=== PATIENT | male | born 1950 | race Caucasian/White ===

== ENCOUNTER 2017-08-23 15:17 | Inpatient (IN) ==
[2017-08-23] MEDS ORDERED: Albuterol 2.5 MG/3 ML NEBULIZER IH PRN (17:17)
[2017-08-24 05:41] LABS: Basophils % 0.1 %; Eosinophils # 0.1 K/mcL (0.0-0.6); Eosinophils % 0.8 %; Hematocrit 53.6 % (37.5-50.1); Hemoglobin 17.2 g/dL (12.9-16.9); Immature Granulocytes % 0.5 % (0-4); Lymphocytes # 1.4 K/mcL (0.6-4.6); Lymphocytes % 9.8 %; Mean Corpuscular HGB Conc 32.1 g/dL (31.6-35.5); Mean Corpuscular Hemoglobin 30.6 pg (28.0-33.3); Mean Corpuscular Volume 95.4 fL (83.0-100.0); Mean Platelet Volume 10.7 fL (9.4-12.4); Monocytes # 1.8 K/mcL (0.0-1.3); Monocytes % 12.2 %; Neutrophils # 11.3 K/mcL (1.6-8.9); Platelet Count 124 K/mcL (140-400); Red Blood Count 5.62 M/mcL (4.19-5.50); Red Cell Distribution Width 13.2 % (11.5-14.5); Segmented Neutrophils % 76.6 %
[2017-08-24 06:03] LABS: BUN/Creatinine Ratio 34 (6-26); Blood Urea Nitrogen 28 mg/dL (8-23); Calcium 9.1 mg/dL (8.6-10.3); Carbon Dioxide 42 mEq/L (23-29); Chloride 91 mEq/L (98-107); Glucose 85 mg/dL (70-105); Osmolality,Calculated 289 (280-300); Potassium 4.8 mEq/L (3.5-5.1); Sodium 137 mEq/L (136-145); eGFR For African Americans > 60 (> 60); eGFR For Non-African Americans > 60 (> 60)
[2017-08-24 08:53] LABS: ABG Base Excess 17 mEq/L (-2 to 3); ABG HCO3 47 mEq/L (21-27); ABG Oxygen Saturation 98 % (95-98); ABG PCO2 71 mmHg (35-45); ABG PH 7.43 pH Units (7.32-7.45); ABG PO2 109 mmHg (85-104); ABG TCO2 49 mEq/L (20-26)
--- NOTE | 2017-08-24 09:31 | Internal Med History&Physical ---
Date of Encounter: 08/24/17 Time of Encounter: 09:29 Assessment and Plan (1) COPD exacerbation Current visit: Yes Status: Acute Continue prednisone and oxygen and inhaled nebulizers. Monitor. (2) New onset atrial fibrillation Current visit: Yes Status: Acute Rate and rhythm controlled with current medication. Monitor (3) Pneumonia Current visit: Yes Status: Acute Improving. Continue Augmentin. Monitor Qualifiers: Pneumonia type: due to unspecified organism Laterality: unspecified laterality Lung location: unspecified part of lung Qualified Code(s): J18.9 - Pneumonia, unspecified organism (4) Acute systolic heart failure Current visit: Yes Status: Acute Pedal edema present. Monitor for decompensation. Continue current medication. Internal Medicine - H&P: HPI Admitted From: Intrahospital Transfer Plans for Post Hospital Care: Home History of present illness: Mr. Louis is a 67 year old male admitted to rehab unit from [facility] after being admitted for COPD exacerbation, pneumonia, new onset a fib and CHF. Patient has been a 40+ years, 2 packs a day. States he quit 2 weeks ago. Recently had a thoracentesis for right pleural effusion. Complains of shortness of breath. Denies chest pain, fever, chills, nausea, vomiting or diarrhea. Past medical history includes COPD recent CT scan also showed lesion on the long. Oncology implement ontology suggested repeating CT scan and 4 to 6 weeks. Past Med Surg Social Fam HX - Past Medical History Medical history: atrial fibrillation, CHF, COPD Additional medical history: emphysema smoker Psychiatric history: no psych history, anxiety - Past Surgical History Additional surgical history: Broken femur, nail placed in femur in 1998 - Social History Smoking Status: Former smoker - Family History Mother Living Status: Hx Family Cancer: Yes Father Living Status: Hx Family Cancer: Yes Internal Medicine - H&P: Meds Albuterol Sulfate [Proair Respiclick] 90 mcg IH QID PRN 08/14/17 [History] Fluticasone/Vilanterol [Breo Ellipta 200-25 Mcg INH] 1 puff IH DAILY 08/14/17 [ History] Albuterol Neb [Proventil Neb] 2.5 mg IH Q8H PRN 08/15/17 [History] Multivits,Ca,Min/Iron/FA/Lycop [Men Under 50 Multivitamin Tab] 1 tab PO DAILY [History] Amoxicillin/Clavulanate [Augmentin] 875 mg PO BIDWM 7 Days #14 tablet 08/21/17 [ Rx] Carvedilol [Coreg] 12.5 mg PO BIDWM #30 tablet 08/21/17 [Rx] Digoxin [Lanoxin] 0.125 mg PO DAILY #30 tablet 08/21/17 [Rx] predniSONE [PredniSONE] 20 mg PO DAILY 5 Days #5 tablet 08/21/17 [Rx] 3 Allergy/AdvReac Type Severity Reaction Status Date / Time No Known Allergies Allergy Verified 08/15/17 10:18 All Systems PM: A 10-system review of systems was performed and is negative for pertinent findings except as documented above in the HPI. - Constitutional Constitutional: no chills, no fever(s), no night sweats - EENT Eyes: no change in vision, no discharge, no pain, no photophobia Ears: no ear discharge, no ear pain, no tinnitus Nose, mouth and throat: no dysphagia, no nasal discharge, no neck pain, no sore throat - Cardiovascular Cardiovascular ROS IM: no chest pain, no diaphoresis, no dyspnea, no lightheadedness, no palpitations, no syncope - Respiratory Respiratory: as per HPI, no cough, no dyspnea, no wheezing, no excessive phlegm production - Gastrointestinal Gastrointestinal: no abdominal pain, no diarrhea, no hematemesis, no hematochezia, no melena, no nausea, no vomiting - Musculoskeletal Musculoskeletal ROS IM: no numbness, no tingling - Integumentary Integumentary IM: no rash, no unusual bruising - Neurological Neurological ROS: no confusion, no convulsions, no focal weakness, no numbness, no tingling, no tremor(s) - Hematologic/Lymphatic Hematologic/Lymphatic: no easy bruising - Constitutional Vitals: Temp Pulse Resp BP Pulse Ox 97.6 F 102 18 141/83 91 08/24/17 07:15 08/24/17 07:15 08/24/17 07:15 08/24/17 07:15 08/24/17 07:15 General appearance: Present: cooperative, A&O X 3, pleasant, no acute distress, answers questions appropriately - Head Head exam: Present: atraumatic, normocephalic - Eye Eye exam: Present: PERRL, conjuntiva pink, sclera anicteric Pupils: Present: PERRL - Neck Neck exam general surgery: Present: supple, trachea midline. Absent: lymphadenopathy - Respiratory Respiratory exam: Present: decreased breath sounds, CTAB. Absent: accessory muscle use, rales, rhonchi, wheezes - Cardiovascular Cardiovascular exam: Present: RRR, +S1, +S2. Absent: diastolic murmur, gallop, rubs, systolic murmur - GI/Abdominal GI/Abdominal exam: Present: normal bowel sounds, soft, no peritoneal signs. Absent: distended, tenderness - Extremities Exam Extremities exam: Present: pedal edema, warm, radial pulses palpable and symmetrical. Absent: calf tenderness, cyanotic - Neurological Exam Neurological exam: Present: CN II-XII intact, oriented X3, no focal deficits. Absent: pronater drift, facial droop, speech deficit - Skin Skin exam: Present: dry, intact Internal Med - H&P Results - Labs CBC & Chem 7: 08/24/17 05:15 08/24/17 05:15 Labs: Short CBC 08/24/17 Range/Units 05:15 WBC 14.7 H (4.3-11.1) K/mcL Hgb 17.2 H (12.9-16.9) g/dL Hct 53.6 H (37.5-50.1) % Plt Count 124 L (140-400) K/mcL Neutrophils # 11.3 H (1.6-8.9) K/mcL BMP 08/24/17 05:15 Sodium 137 Potassium 4.8 Chloride 91 L Carbon Dioxide 42 H* BUN 28 H Creatinine 0.83 Glucose 85 Calcium 9.1 - ABG Interpretation ABG results: 08/24/17 08:46 ABG pH 7.43 ABG pCO2 71 H* ABG pO2 109 H ABG HCO3 47 H ABG Total CO2 49 H ABG O2 Saturation 98 ABG Base Excess 17 H - VTE Documentation of Mechanical Device: Graduated compression elastic hosiery
[2017-08-24] MEDS: predniSONE 20 MG TABLET PO SCH (09:39)
[2017-08-24] MEDS: Multivit/Ca/Min/Fe/FA 1 TAB TABLET PO SCH (09:40)
[2017-08-24] MEDS: *HR* Digoxin 0.125 MG TABLET PO SCH (09:40)
[2017-08-24] MEDS: (Breo Ellipta 200-25 Mcg Inh) IH SCH (09:43)
[2017-08-25 05:31] LABS: Basophils % 0.1 %; Eosinophils # 0.1 K/mcL (0.0-0.6); Eosinophils % 0.7 %; Hematocrit 50.2 % (37.5-50.1); Hemoglobin 16.4 g/dL (12.9-16.9); Immature Granulocytes % 0.4 % (0-4); Lymphocytes # 1.6 K/mcL (0.6-4.6); Lymphocytes % 10.9 %; Mean Corpuscular HGB Conc 32.7 g/dL (31.6-35.5); Mean Corpuscular Volume 94.9 fL (83.0-100.0); Mean Platelet Volume 9.9 fL (9.4-12.4); Monocytes # 1.7 K/mcL (0.0-1.3); Monocytes % 11.3 %; Neutrophils # 11.3 K/mcL (1.6-8.9); Platelet Count 124 K/mcL (140-400); Red Blood Count 5.29 M/mcL (4.19-5.50); Red Cell Distribution Width 13.1 % (11.5-14.5); Segmented Neutrophils % 76.6 %
[2017-08-25 05:57] LABS: BUN/Creatinine Ratio 36 (6-26); Blood Urea Nitrogen 28 mg/dL (8-23); Calcium 8.8 mg/dL (8.6-10.3); Carbon Dioxide 44 mEq/L (23-29); Chloride 89 mEq/L (98-107); Glucose 93 mg/dL (70-105); Osmolality,Calculated 283 (280-300); Potassium 4.9 mEq/L (3.5-5.1); Sodium 134 mEq/L (136-145); eGFR For African Americans > 60 (> 60); eGFR For Non-African Americans > 60 (> 60)
[2017-08-25] MEDS: (Breo Ellipta 200-25 Mcg Inh) IH SCH (08:11)
[2017-08-25] MEDS: predniSONE 20 MG TABLET PO SCH (08:37)
[2017-08-25] MEDS: Multivit/Ca/Min/Fe/FA 1 TAB TABLET PO SCH (08:37)
[2017-08-25] MEDS: *HR* Digoxin 0.125 MG TABLET PO SCH (08:37)
[2017-08-25] MEDS ORDERED: Nitroglycerin 0.4 MG TAB.SUBL SL PRN (15:14)
--- NOTE | 2017-08-25 15:31 | Internal Med Progress Note ---
Date of Encounter: 08/25/17 Time of Encounter: 15:29 - Assessment and plan (1) COPD exacerbation Current Visit: Yes Status: Chronic Assessment and plan: Patient currently appears relaxed but states that he does become short of breath with minimal exertion. Lungs are clear throughout but noted diminished breath sounds to bases L>R. Patient with recent history of right pleural effusion requiring thoracentesis 2 when hospitalized at [place]. Chest x-ray was obtained which shows continued right pleural effusion which may have increased in size. We will obtain a PA and lateral chest x-ray in the morning for further evaluation of pleural effusion. We will titrate oxygen to maintain saturations greater than 90 and less than 95%. Patient denies any productive cough. Afebrile. No current signs of infection. We will obtain a sputum culture when available. We will have respiratory therapy perform PFT further evaluation. Spoke to patient in length about the benefits of using BiPAP, but patient states that he has tried BiPAP in the past and was not able to tolerate and currently refuses. (2) Afib Current Visit: Yes Status: Chronic Assessment and plan: No acute issues. Heart rate remains irregular with controlled rate less than 100 Qualifiers: Atrial fibrillation type: chronic Qualified Code(s): I48.2 - Chronic atrial fibrillation (3) Heart failure Current Visit: No Status: Chronic Assessment and plan: Currently no acute issues. Patient with history of EF of 25-30% due to cardiomyopathy. Vital signs stable. Chest x-ray showed no pulmonary edema. Qualifiers: Heart failure type: unspecified Heart failure chronicity: unspecified Qualified Code(s): I50.9 - Heart failure, unspecified (4) Cardiomyopathy Current Visit: No Status: Chronic Assessment and plan: No acute issues. EF 25-30%. Chest x-ray shows no pulmonary edema, but does continue to show right pleural effusion. Vital signs are stable. We will continue with current medications Qualifiers: Cardiomyopathy type: unspecified Qualified Code(s): I42.9 - Cardiomyopathy , unspecified - Time Spent With Patient less than 15 minutes - Subjective Interval history: Patient currently appears relaxed and denies any discomforts. Patient states that his breathing seems somewhat improved but continues to have dyspnea with minimal exertion. Patient denies any productive cough. - Constitutional Vitals: Temp Pulse Resp BP Pulse Ox 98.3 F 93 16 135/81 99 08/25/17 07:00 08/25/17 13:45 08/25/17 07:00 08/25/17 07:00 08/25/17 13:45 General appearance: Present: cooperative, A&O X 3, pleasant, no acute distress, answers questions appropriately - Head Head exam: Present: atraumatic, normocephalic - Eye Eye exam: Present: PERRL, conjuntiva pink, sclera anicteric Pupils: Present: PERRL - Neck Neck exam general surgery: Present: supple, trachea midline. Absent: lymphadenopathy - Respiratory Respiratory exam: Present: CTAB. Absent: accessory muscle use, rales, rhonchi, wheezes Additional comments: Lungs are clear throughout upper emerson but noted very diminished to bases. Respiratory effort appears relaxed. No productive cough noted - Cardiovascular Cardiovascular exam: Present: RRR, +S1, +S2. Absent: diastolic murmur, gallop, rubs, systolic murmur - GI/Abdominal GI/Abdominal exam: Present: normal bowel sounds, soft, no peritoneal signs. Absent: distended, tenderness - Extremities Exam Extremities exam: Present: warm, radial pulses palpable and symmetrical. Absent : calf tenderness, cyanotic, pedal edema - Neurological Exam Neurological exam: Present: CN II-XII intact, oriented X3, no focal deficits. Absent: pronater drift, facial droop, speech deficit - Skin Skin exam: Present: dry, intact Internal Medicine: Result - Labs CBC & Chem 7: 08/25/17 05:20 08/25/17 05:20 Labs: Short CBC 08/25/17 Range/Units 05:20 WBC 14.8 H (4.3-11.1) K/mcL Hgb 16.4 (12.9-16.9) g/dL Hct 50.2 H (37.5-50.1) % Plt Count 124 L (140-400) K/mcL Neutrophils # 11.3 H (1.6-8.9) K/mcL BMP 08/25/17 05:20 Sodium 134 L Potassium 4.9 Chloride 89 L Carbon Dioxide 44 H* BUN 28 H Creatinine 0.78 Glucose 93 Calcium 8.8 - ABG Interpretation ABG results: ABG ABG pH 7.43 pH Units (7.32-7.45) 08/24/17 08:46 ABG pCO2 71 mmHg (35-45) H* 08/24/17 08:46 ABG pO2 109 mmHg (85-104) H 08/24/17 08:46 ABG O2 Saturation 98 % (95-98) 08/24/17 08:46 - Impressions Impressions Chest X-Ray 08/25/17 13:42 IMPRESSION: Stable examination with partially loculated moderate right pleural effusion with right upper lobe opacity, unchanged. D/ / Leandro Hardy MD / Leandro Hardy MD Interpreting Provider: Leandro Hardy MD - VTE Documentation of Mechanical Device: Graduated compression elastic hosiery Consult Discharge Plan - Plan Referrals: Justen Michaud MD [Partnered Physician] - 09/22/17 9:30 am (csardiology follow up at the [facility] [address]) Jefe Bansal MD [Primary Care Provider] -
[2017-08-25] MEDS: Levalbuterol Neb 1.25 MG/3 ML IH SCH ×2 (16:42→22:07)
[2017-08-26] MEDS: Levalbuterol Neb 1.25 MG/3 ML IH SCH ×4 (04:40→20:57)
[2017-08-26] MEDS: predniSONE 20 MG TABLET PO SCH (08:15)
[2017-08-26] MEDS: Multivit/Ca/Min/Fe/FA 1 TAB TABLET PO SCH (08:16)
[2017-08-26] MEDS: (Breo Ellipta 200-25 Mcg Inh) IH SCH (08:16)
[2017-08-26] MEDS: *HR* Digoxin 0.125 MG TABLET PO SCH (08:16)
--- NOTE | 2017-08-26 11:14 | Internal Med Progress Note ---
Date of Encounter: 08/26/17 Time of Encounter: 11:11 - Assessment and plan (1) COPD exacerbation Current Visit: Yes Status: Chronic Assessment and plan: Patient currently appears relaxed but states that he does become short of breath with minimal exertion. Lungs are clear throughout but noted diminished breath sounds to lower half of lung emerson. Patient with recent history of right pleural effusion requiring thoracentesis 2 when hospitalized at [place]. Chest x-ray was obtained which shows continued right pleural effusion which may have increased in size. Obtained a PA/LAT CXR which shows no change. We will continue to titrate oxygen to maintain saturations greater than 90 and less than 95%. Pt tolerated RA yesterday through most of the day. Patient denies any productive cough. Afebrile. No current signs of infection. We will obtain a sputum culture when available. We will have respiratory therapy perform PFT further evaluation today. Patient has refused use of BIPAP (2) Afib Current Visit: Yes Status: Chronic Assessment and plan: No acute issues. Heart rate remains irregular with controlled rate less than 100 Qualifiers: Atrial fibrillation type: chronic Qualified Code(s): I48.2 - Chronic atrial fibrillation (3) Heart failure Current Visit: No Status: Chronic Assessment and plan: Currently no acute issues. Patient with history of EF of 25-30% due to cardiomyopathy. Vital signs stable. Chest x-ray showed no pulmonary edema. Qualifiers: Heart failure type: unspecified Heart failure chronicity: unspecified Qualified Code(s): I50.9 - Heart failure, unspecified (4) Cardiomyopathy Current Visit: No Status: Chronic Assessment and plan: No acute issues. EF 25-30%. Chest x-ray shows no pulmonary edema, but does continue to show right pleural effusion. Vital signs are stable. We will continue with current medications Qualifiers: Cardiomyopathy type: unspecified Qualified Code(s): I42.9 - Cardiomyopathy , unspecified - Time Spent With Patient less than 15 minutes - Subjective Interval history: Patient currently appears relaxed and denies any discomforts. Patient states that his breathing seems somewhat improved but continues to have dyspnea with minimal exertion. Patient denies any productive cough. Patient reportedly has been weaned off O2 while awake with ox sat >92%. During the night while asleep, he desaturated and needed to have O2 restarted at 2L - Constitutional Vitals: Temp Pulse Resp BP Pulse Ox 97.3 F L 90 20 129/81 98 08/26/17 09:00 08/26/17 09:00 08/26/17 09:00 08/26/17 09:00 08/26/17 09:00 General appearance: Present: cooperative, A&O X 3, pleasant, no acute distress, answers questions appropriately - Head Head exam: Present: atraumatic, normocephalic - Eye Eye exam: Present: PERRL, conjuntiva pink, sclera anicteric Pupils: Present: PERRL - Neck Neck exam general surgery: Present: supple, trachea midline. Absent: lymphadenopathy - Respiratory Respiratory exam: Present: CTAB. Absent: accessory muscle use, rales, rhonchi, wheezes Additional comments: Lungs are CTA to upper emerson, but noted diminished breath sounds to lower half of lung emerson. No wheezing. Resp effort is relaxed. No productive cough. - Cardiovascular Cardiovascular exam: Present: RRR, +S1, +S2. Absent: diastolic murmur, gallop, rubs, systolic murmur - GI/Abdominal GI/Abdominal exam: Present: normal bowel sounds, soft, no peritoneal signs. Absent: distended, tenderness - Extremities Exam Extremities exam: Present: warm, radial pulses palpable and symmetrical. Absent : calf tenderness, cyanotic, pedal edema Additional comments: slight nonpitting edema to bilateral lower legs. - Neurological Exam Neurological exam: Present: CN II-XII intact, oriented X3, no focal deficits. Absent: pronater drift, facial droop, speech deficit - Skin Skin exam: Present: dry, intact Internal Medicine: Result - Labs CBC & Chem 7: 08/25/17 05:20 08/25/17 05:20 - ABG Interpretation ABG results: ABG ABG pH 7.43 pH Units (7.32-7.45) 08/24/17 08:46 ABG pCO2 71 mmHg (35-45) H* 08/24/17 08:46 ABG pO2 109 mmHg (85-104) H 08/24/17 08:46 ABG O2 Saturation 98 % (95-98) 08/24/17 08:46 - Impressions Impressions Chest X-Ray 08/25/17 13:42 IMPRESSION: Stable examination with partially loculated moderate right pleural effusion with right upper lobe opacity, unchanged. D/ / Leandro Hardy MD / Leandro Hardy MD Interpreting Provider: Leandro Hardy MD Chest X-Ray 08/26/17 07:00 IMPRESSION: 1. Unchanged moderate to large predominantly subpulmonic right pleural effusion with suspected partial loculation. 2. Unchanged right basilar passive atelectasis. 3. Unchanged airspace and reticular opacities in the lateral right upper lobe, potentially scarring or atelectasis. Underlying neoplasm is not excluded. D/ / Jimy Tomas MD / Jimy Tomas MD Interpreting Provider: Jimy Tomas MD - Diagnostic Studies Chest x-ray Status: image reviewed by ny - VTE Documentation of Mechanical Device: Graduated compression elastic hosiery Consult Discharge Plan - Plan Referrals: Justen Michaud MD [Partnered Physician] - 09/22/17 9:30 am (csardiology follow up at the [facility] [address]) Jefe Bansal MD [Primary Care Provider] -
[2017-08-27] MEDS: Levalbuterol Neb 1.25 MG/3 ML IH SCH ×4 (04:51→21:32)
[2017-08-27] MEDS: *HR* Digoxin 0.125 MG TABLET PO SCH (08:27)
[2017-08-27] MEDS: Multivit/Ca/Min/Fe/FA 1 TAB TABLET PO SCH (08:27)
[2017-08-27] MEDS: predniSONE 20 MG TABLET PO SCH (08:27)
[2017-08-27] MEDS: (Breo Ellipta 200-25 Mcg Inh) IH SCH (09:30)
--- NOTE | 2017-08-27 11:01 | Internal Med Progress Note ---
Date of Encounter: 08/27/17 Time of Encounter: 10:56 - Assessment and plan (1) COPD exacerbation Current Visit: Yes Status: Chronic Assessment and plan: Patient currently appears relaxed but states that he does become short of breath with minimal exertion. Lungs are clear throughout but noted diminished breath sounds to lower half of lung emerson. Patient with recent history of right pleural effusion requiring thoracentesis 2 when hospitalized at [place]. Chest x-ray was obtained which shows stable right pleural effusion. Obtained a PA/LAT CXR which shows no change. We will continue to titrate oxygen to maintain saturations greater than 90 and less than 95%. Pt tolerating RA today, with saturation greater than 92%.. Patient denies any productive cough. Afebrile. No current signs of infection. (2) Afib Current Visit: Yes Status: Chronic Assessment and plan: No acute issues. Heart rate remains irregular with controlled rate less than 100 Qualifiers: Atrial fibrillation type: chronic Qualified Code(s): I48.2 - Chronic atrial fibrillation (3) Heart failure Current Visit: No Status: Chronic Assessment and plan: Currently no acute issues. Patient with history of EF of 25-30% due to cardiomyopathy. Vital signs stable. Chest x-ray showed no pulmonary edema. Qualifiers: Heart failure type: unspecified Heart failure chronicity: unspecified Qualified Code(s): I50.9 - Heart failure, unspecified (4) Cardiomyopathy Current Visit: No Status: Chronic Assessment and plan: No acute issues. EF 25-30%. Chest x-ray shows no pulmonary edema, but does continue to show right pleural effusion. Vital signs are stable. We will continue with current medications Qualifiers: Cardiomyopathy type: unspecified Qualified Code(s): I42.9 - Cardiomyopathy , unspecified - Time Spent With Patient less than 15 minutes - Subjective Interval history: Patient currently appears relaxed and denies any discomforts. Patient states that his breathing seems somewhat improved but continues to have dyspnea with minimal exertion. Patient denies any productive cough. Patient reportedly has been weaned off O2 while awake with ox sat >92%. During the night while asleep, he desaturated and needed to have O2 restarted at 2L. Currently patient is maintaining oxygen saturation greater than 92% while on room air. - Constitutional Vitals: Temp Pulse Resp BP Pulse Ox 97 F L 85 15 112/65 98 08/27/17 07:48 08/27/17 07:48 08/27/17 07:48 08/27/17 07:48 08/27/17 07:48 General appearance: Present: cooperative, A&O X 3, pleasant, no acute distress, answers questions appropriately - Head Head exam: Present: atraumatic, normocephalic - Eye Eye exam: Present: PERRL, conjuntiva pink, sclera anicteric Pupils: Present: PERRL - Neck Neck exam general surgery: Present: supple, trachea midline. Absent: lymphadenopathy - Respiratory Respiratory exam: Present: CTAB. Absent: accessory muscle use, rales, rhonchi, wheezes Additional comments: Lungs are clear throughout upper emerson but noted diminished breath sounds to lower half of posterior emerson. No wheezes heard. Respiratory effort appears relaxed while at rest but patient noted to become dyspneic during exertion - Cardiovascular Cardiovascular exam: Present: RRR, +S1, +S2. Absent: diastolic murmur, gallop, rubs, systolic murmur - GI/Abdominal GI/Abdominal exam: Present: normal bowel sounds, soft, no peritoneal signs. Absent: distended, tenderness - Extremities Exam Extremities exam: Present: warm, radial pulses palpable and symmetrical. Absent : calf tenderness, cyanotic, pedal edema Additional comments: Patient continues to have +2 edema to lower legs and feet. [facility]. - Neurological Exam Neurological exam: Present: CN II-XII intact, oriented X3, no focal deficits. Absent: pronater drift, facial droop, speech deficit - Skin Skin exam: Present: dry, intact Internal Medicine: Result - Labs CBC & Chem 7: 08/25/17 05:20 08/25/17 05:20 - ABG Interpretation ABG results: ABG ABG pH 7.43 pH Units (7.32-7.45) 08/24/17 08:46 ABG pCO2 71 mmHg (35-45) H* 08/24/17 08:46 ABG pO2 109 mmHg (85-104) H 08/24/17 08:46 ABG O2 Saturation 98 % (95-98) 08/24/17 08:46 - VTE Documentation of Mechanical Device: Graduated compression elastic hosiery Consult Discharge Plan - Plan Referrals: Rei Rubin MD [Partnered Physician] - 09/09/17 1:45 pm Justen Michaud MD [Partnered Physician] - 09/22/17 9:30 am (csardiology follow up at the [facility] [address]) Delonte Parker MD [Partnered Physician] - (Patient will need follow up at discharge.) Jefe Bansal MD [Primary Care Provider] -
[2017-08-28] MEDS: Levalbuterol Neb 1.25 MG/3 ML IH SCH ×4 (03:02→22:26)
[2017-08-28] MEDS: *HR* Digoxin 0.125 MG TABLET PO SCH (08:41)
[2017-08-28] MEDS: Multivit/Ca/Min/Fe/FA 1 TAB TABLET PO SCH (08:41)
[2017-08-28] MEDS: predniSONE 20 MG TABLET PO SCH (08:41)
[2017-08-28] MEDS: (Breo Ellipta 200-25 Mcg Inh) IH SCH (11:07)
[2017-08-28 15:21] LABS: Hematocrit 47.1 % (37.5-50.1); Hemoglobin 15.3 g/dL (12.9-16.9); Mean Corpuscular HGB Conc 32.5 g/dL (31.6-35.5); Mean Corpuscular Volume 95.5 fL (83.0-100.0); Mean Platelet Volume 10.3 fL (9.4-12.4); Platelet Count 136 K/mcL (140-400); Red Blood Count 4.93 M/mcL (4.19-5.50); Red Cell Distribution Width 13.2 % (11.5-14.5)
[2017-08-28 15:40] LABS: BUN/Creatinine Ratio 41 (6-26); Blood Urea Nitrogen 32 mg/dL (8-23); Calcium 8.9 mg/dL (8.6-10.3); Carbon Dioxide 40 mEq/L (23-29); Chloride 93 mEq/L (98-107); Glucose 104 mg/dL (70-105); Osmolality,Calculated 289 (280-300); Potassium 4.7 mEq/L (3.5-5.1); Sodium 136 mEq/L (136-145); eGFR For African Americans > 60 (> 60); eGFR For Non-African Americans > 60 (> 60)
--- NOTE | 2017-08-28 18:03 | Internal Med Progress Note ---
Date of Encounter: 08/28/17 Time of Encounter: 15:01 - Assessment and plan (1) COPD exacerbation Current Visit: Yes Status: Chronic Assessment and plan: Appear to be improved, history of thoracentesis and pleural effusion 2 on the right Reports of cavitary lesion, status post biopsy, nonmalignant Continue breathing treatments Continue oxygen Has dry cough No fevers Sputum culture negative Patient continues to be on Augmentin; unknown indication, possible suspected pneumonia started 08/23/2017 for a seven-day course ending at 08/30/2017 (2) Heart failure Current Visit: No Status: Chronic Assessment and plan: Patient does not appear to be on anticoagulation Patient appears to be on digoxin; unknown levels Qualifiers: Heart failure type: unspecified Heart failure chronicity: unspecified Qualified Code(s): I50.9 - Heart failure, unspecified (3) Afib Current Visit: Yes Status: Chronic Assessment and plan: Appears to be controlled, not in RVR Patient chronically on digoxin; unknown levels We will obtain levels of digoxin's in the a.m. Qualifiers: Atrial fibrillation type: chronic Qualified Code(s): I48.2 - Chronic atrial fibrillation - Time Spent With Patient 25 - 35 minutes - Subjective Interval history: No issues reported today, patient was receiving his breathing treatment. Feels more short of breath when laying flat, but overall indicated that he has improved since in here. He is not chronically hypoxic, has been only on oxygen while being hospitalized. Otherwise reports appetite to be intact, denied any chest pains or shortness of breath in a seated position. No issues with GI or symptoms. - Constitutional Vitals: Temp Pulse Resp BP Pulse Ox 97.4 F L 72 16 112/72 96 08/28/17 07:09 08/28/17 07:09 08/28/17 07:09 08/28/17 07:09 08/28/17 08:00 General appearance: Present: cooperative, A&O X 3, pleasant, no acute distress, answers questions appropriately - Eye Eye exam: Present: PERRL, conjuntiva pink, sclera anicteric Pupils: Present: PERRL - Neck Neck exam general surgery: Present: supple, trachea midline. Absent: lymphadenopathy - Respiratory Respiratory exam: Present: decreased breath sounds (Bilaterally but remains clear to auscultation). Absent: rales, rhonchi, wheezes - Cardiovascular Cardiovascular exam: Present: RRR, +S1, +S2. Absent: diastolic murmur, gallop, rubs, systolic murmur - GI/Abdominal GI/Abdominal exam: Present: normal bowel sounds, soft, no peritoneal signs. Absent: distended, tenderness - Extremities Exam Extremities exam: Present: pedal edema (+2 bilateral up to the knees) - Neurological Exam Neurological exam: Present: CN II-XII intact, oriented X3, no focal deficits. Absent: pronater drift, facial droop, speech deficit - Skin Skin exam: Present: dry, intact Internal Medicine: Result - Labs CBC & Chem 7: 08/28/17 15:15 08/28/17 15:15 Labs: Short CBC 08/28/17 Range/Units 15:15 WBC 14.0 H (4.3-11.1) K/mcL Hgb 15.3 (12.9-16.9) g/dL Hct 47.1 (37.5-50.1) % Plt Count 136 L (140-400) K/mcL BMP 08/28/17 15:15 Sodium 136 Potassium 4.7 Chloride 93 L Carbon Dioxide 40 H* BUN 32 H Creatinine 0.79 Glucose 104 Calcium 8.9 - ABG Interpretation ABG results: ABG ABG pH 7.43 pH Units (7.32-7.45) 08/24/17 08:46 ABG pCO2 71 mmHg (35-45) H* 08/24/17 08:46 ABG pO2 109 mmHg (85-104) H 08/24/17 08:46 ABG O2 Saturation 98 % (95-98) 08/24/17 08:46 - VTE Documentation of Mechanical Device: Graduated compression elastic hosiery Consult Discharge Plan - Plan Referrals: Rei Rubin MD [Partnered Physician] - 09/09/17 1:45 pm Justen Michaud MD [Partnered Physician] - 09/22/17 9:30 am (csardiology follow up at the [facility] [address]) Delonte Parker MD [Partnered Physician] - (Patient will need follow up at discharge.) Jefe Bansal MD [Primary Care Provider] -
[2017-08-29] MEDS: Levalbuterol Neb 1.25 MG/3 ML IH SCH ×4 (04:29→21:36)
[2017-08-29 05:25] LABS: Hematocrit 47.7 % (37.5-50.1); Hemoglobin 15.3 g/dL (12.9-16.9); Mean Corpuscular HGB Conc 32.1 g/dL (31.6-35.5); Mean Corpuscular Hemoglobin 30.5 pg (28.0-33.3); Mean Platelet Volume 10.6 fL (9.4-12.4); Platelet Count 132 K/mcL (140-400); Red Blood Count 5.02 M/mcL (4.19-5.50)
[2017-08-29 05:58] LABS: BUN/Creatinine Ratio 35 (6-26); Blood Urea Nitrogen 27 mg/dL (8-23); Carbon Dioxide 43 mEq/L (23-29); Chloride 93 mEq/L (98-107); Digoxin 0.7 ng/mL (0.8-2.0); Glucose 89 mg/dL (70-105); Osmolality,Calculated 291 (280-300); Potassium 4.7 mEq/L (3.5-5.1); Sodium 138 mEq/L (136-145); eGFR For African Americans > 60 (> 60); eGFR For Non-African Americans > 60 (> 60)
[2017-08-29] MEDS: Multivit/Ca/Min/Fe/FA 1 TAB TABLET PO SCH (08:28)
[2017-08-29] MEDS: *HR* Digoxin 0.125 MG TABLET PO SCH (08:28)
[2017-08-29] MEDS: predniSONE 20 MG TABLET PO SCH (08:30)
[2017-08-29] MEDS: (Breo Ellipta 200-25 Mcg Inh) IH SCH (08:30)
--- NOTE | 2017-08-29 16:17 | Internal Med Progress Note ---
Date of Encounter: 08/29/17 Time of Encounter: 16:15 - Assessment and plan (1) COPD exacerbation Current Visit: Yes Status: Chronic Assessment and plan: Appear to be improved, history of thoracentesis and pleural effusion 2 on the right Reports of cavitary lesion, status post biopsy, nonmalignant Continue breathing treatments Continue oxygen Has dry cough No fevers Sputum culture negative Patient continues to be on Augmentin; unknown indication, possible suspected pneumonia started 08/23/2017 for a seven-day course ending at 08/30/2017 -repeat chest xr wednesday XR/XR chest 2V IMPRESSION: 1. Unchanged moderate to large predominantly subpulmonic right pleural effusion with suspected partial loculation. 2. Unchanged right basilar passive atelectasis. 3. Unchanged airspace and reticular opacities in the lateral right upper lobe, potentially scarring or atelectasis. Underlying neoplasm is not excluded. (2) Heart failure Current Visit: No Status: Chronic Assessment and plan: Patient does not appear to be on anticoagulation Patient appears to be on digoxin Qualifiers: Heart failure type: unspecified Heart failure chronicity: unspecified Qualified Code(s): I50.9 - Heart failure, unspecified (3) Afib Current Visit: Yes Status: Chronic Assessment and plan: Appears to be controlled, not in RVR Patient chronically on digoxin; last level at 0.7 -Suggestive check another digoxin levels and 4-7 days from. Qualifiers: Atrial fibrillation type: chronic Qualified Code(s): I48.2 - Chronic atrial fibrillation - Time Spent With Patient 25 - 35 minutes - Subjective Interval history: No issues reported today. overall indicated that he has improved since in here. He is not chronically hypoxic, has been only on oxygen while being hospitalized. Otherwise reports appetite to be intact, denied any chest pains or shortness of breath in a seated position. No issues with GI or symptoms. - Constitutional Vitals: Temp Pulse Resp BP Pulse Ox 98.4 F 75 16 119/77 98 08/29/17 07:00 08/29/17 07:00 08/29/17 07:00 08/29/17 07:00 08/29/17 07:00 General appearance: Present: cooperative, A&O X 3, pleasant, no acute distress, answers questions appropriately - Neck Neck exam general surgery: Present: supple, trachea midline. Absent: lymphadenopathy - Respiratory Respiratory exam: Absent: accessory muscle use, rales, rhonchi, wheezes Additional comments: Distant lung sounds on the left, at least to mid emerson, but otherwise clear to auscultation bilaterally - Cardiovascular Cardiovascular exam: Present: RRR, +S1, +S2. Absent: diastolic murmur, gallop, rubs, systolic murmur - GI/Abdominal GI/Abdominal exam: Present: normal bowel sounds, soft, no peritoneal signs. Absent: distended, tenderness - Extremities Exam Extremities exam: Present: warm, radial pulses palpable and symmetrical. Absent : calf tenderness, cyanotic, pedal edema Internal Medicine: Result - Labs CBC & Chem 7: 08/29/17 05:10 08/29/17 05:10 Labs: Short CBC 08/29/17 Range/Units 05:10 WBC 12.3 H (4.3-11.1) K/mcL Hgb 15.3 (12.9-16.9) g/dL Hct 47.7 (37.5-50.1) % Plt Count 132 L (140-400) K/mcL BMP 08/29/17 05:10 Sodium 138 Potassium 4.7 Chloride 93 L Carbon Dioxide 43 H* BUN 27 H Creatinine 0.78 Glucose 89 Calcium 9.0 - ABG Interpretation ABG results: ABG ABG pH 7.43 pH Units (7.32-7.45) 08/24/17 08:46 ABG pCO2 71 mmHg (35-45) H* 08/24/17 08:46 ABG pO2 109 mmHg (85-104) H 08/24/17 08:46 ABG O2 Saturation 98 % (95-98) 08/24/17 08:46 - VTE Documentation of Mechanical Device: Graduated compression elastic hosiery Consult Discharge Plan - Plan Referrals: Rei Rubin MD [Partnered Physician] - 09/09/17 1:45 pm Justen Michaud MD [Partnered Physician] - 09/22/17 9:30 am (csardiology follow up at the [facility] [address]) Delonte Parker MD [Partnered Physician] - (Patient will need follow up at discharge.) Jefe Bansal MD [Primary Care Provider] -
[2017-08-30] MEDS: Levalbuterol Neb 1.25 MG/3 ML IH SCH ×4 (04:07→21:37)
[2017-08-30] MEDS: *HR* Digoxin 0.125 MG TABLET PO SCH (09:26)
[2017-08-30] MEDS: predniSONE 20 MG TABLET PO SCH (09:26)
[2017-08-30] MEDS: Multivit/Ca/Min/Fe/FA 1 TAB TABLET PO SCH (09:27)
[2017-08-30] MEDS: (Breo Ellipta 200-25 Mcg Inh) IH SCH (09:27)
--- NOTE | 2017-08-30 10:00 | Internal Med Progress Note ---
Date of Encounter: 08/30/17 Time of Encounter: 09:57 - Assessment and plan (1) COPD exacerbation Current Visit: Yes Status: Chronic Assessment and plan: Maintaining oxygen Sats on 2 L per nasal cannula. Last dose of Augmentin is today. Chest x-ray repeated today. Continue prednisone and inhaled breathing treatments as scheduled. History of thoracentesis with pleural effusions times 2 on right lung. (2) New onset atrial fibrillation Current Visit: Yes Status: Acute Assessment and plan: Rate and rhythm controlled. Continue digoxin. (3) Pneumonia Current Visit: Yes Status: Acute Assessment and plan: Augmentin completes today. Follow up chest x-ray obtained this morning. Will follow for results. Qualifiers: Pneumonia type: due to unspecified organism Laterality: unspecified laterality Lung location: unspecified part of lung Qualified Code(s): J18.9 - Pneumonia, unspecified organism (4) Acute systolic heart failure Current Visit: Yes Status: Acute Assessment and plan: Stable. Monitor for decompensation. Continue digoxin. - Time Spent With Patient 25 - 35 minutes - Subjective Interval history: Currently resting on the side of the bed. States breathing has improved however takes long to recover after any activity. States lower extremity edema has improved. Denies chest pain, fever, chills, nausea vomiting or diarrhea. Bowels moving as normal. Maintaining appetite with currently drinking ensure supplements. Maintaining oxygen saturations greater than 92% on 2 L. - Constitutional Vitals: Temp Pulse Resp BP Pulse Ox 97.6 F 62 17 110/62 96 08/30/17 07:45 08/30/17 07:45 08/29/17 18:46 08/30/17 07:45 08/30/17 07:45 General appearance: Present: cooperative, A&O X 3, pleasant, no acute distress, answers questions appropriately - Head Head exam: Present: atraumatic, normocephalic - Eye Eye exam: Present: PERRL, conjuntiva pink, sclera anicteric Pupils: Present: PERRL - Neck Neck exam general surgery: Present: supple, trachea midline. Absent: lymphadenopathy - Respiratory Respiratory exam: Present: decreased breath sounds, CTAB. Absent: accessory muscle use, rales, rhonchi, wheezes - Cardiovascular Cardiovascular exam: Present: RRR, +S1, +S2. Absent: diastolic murmur, gallop, rubs, systolic murmur Additional comments: Slight pedal edema. - GI/Abdominal GI/Abdominal exam: Present: normal bowel sounds, soft, no peritoneal signs. Absent: distended, tenderness - Extremities Exam Extremities exam: Present: warm, radial pulses palpable and symmetrical. Absent : calf tenderness, cyanotic, pedal edema - Neurological Exam Neurological exam: Present: CN II-XII intact, oriented X3, no focal deficits. Absent: pronater drift, facial droop, speech deficit - Skin Skin exam: Present: dry, intact Internal Medicine: Result - Labs CBC & Chem 7: 08/29/17 05:10 08/29/17 05:10 - ABG Interpretation ABG results: ABG ABG pH 7.43 pH Units (7.32-7.45) 08/24/17 08:46 ABG pCO2 71 mmHg (35-45) H* 08/24/17 08:46 ABG pO2 109 mmHg (85-104) H 08/24/17 08:46 ABG O2 Saturation 98 % (95-98) 08/24/17 08:46 - Impressions Impressions Chest X-Ray 08/30/17 16:20 IMPRESSION: Hyperinflation of the lung emerson. Stable chest with a large right pleural effusion. There is loculated pleural fluid in the upper lung. There is mild right basilar atelectasis. There is no change from the prior study. Follow up to resolution is suggested. D/ / 08/30/2017 08:38:05 Keren Chavez MD / Isabell Estes Interpreting Provider: Keren Chavez MD - VTE Documentation of Mechanical Device: Graduated compression elastic hosiery Consult Discharge Plan - Plan Referrals: Rei Rubin MD [Partnered Physician] - 09/09/17 1:45 pm Justen Michaud MD [Partnered Physician] - 09/22/17 9:30 am (csardiology follow up at the [facility] [address]) Delonte Parker MD [Partnered Physician] - (Patient will need follow up at discharge.) Jefe Bansal MD [Primary Care Provider] -
[2017-08-31] MEDS: Levalbuterol Neb 1.25 MG/3 ML IH SCH ×4 (05:00→21:48)
[2017-08-31] MEDS: predniSONE 20 MG TABLET PO SCH (08:15)
[2017-08-31] MEDS: *HR* Digoxin 0.125 MG TABLET PO SCH (08:16)
[2017-08-31] MEDS: Multivit/Ca/Min/Fe/FA 1 TAB TABLET PO SCH (08:16)
[2017-08-31] MEDS: (Breo Ellipta 200-25 Mcg Inh) IH SCH (08:18)
--- NOTE | 2017-08-31 10:44 | Internal Med Progress Note ---
Date of Encounter: 08/31/17 Time of Encounter: 10:42 - Assessment and plan (1) COPD exacerbation Current Visit: Yes Status: Chronic Assessment and plan: Maintaining oxygen Sats on 2 L per nasal cannula. Last dose of Augmentin is today. Chest x-ray shows pleural effusions with no change. Continue prednisone and inhaled breathing treatments as scheduled. History of thoracentesis with pleural effusions times 2 on right lung. (2) New onset atrial fibrillation Current Visit: Yes Status: Acute Assessment and plan: Rate and rhythm controlled. Continue digoxin. f/u with cardiology. (3) Pneumonia Current Visit: Yes Status: Acute Assessment and plan: resolved. atb completed yesterday. Qualifiers: Pneumonia type: due to unspecified organism Laterality: unspecified laterality Lung location: unspecified part of lung Qualified Code(s): J18.9 - Pneumonia, unspecified organism (4) Acute systolic heart failure Current Visit: Yes Status: Acute Assessment and plan: Stable. Monitor for decompensation. Continue digoxin. - Time Spent With Patient 25 - 35 minutes - Subjective Interval history: Currently resting on the side of the bed. states SOB with exertion but improving. Denies chest pain, fever, chills, nausea vomiting or diarrhea. Bowels moving as normal. Maintaining appetite with currently drinking ensure supplements. Maintaining oxygen saturations greater than 92% on 2 L. discussing ECF placement. - Constitutional Vitals: Temp Pulse Resp BP Pulse Ox 97.5 F L 75 16 119/75 100 08/31/17 07:45 08/31/17 07:45 08/30/17 18:41 08/31/17 07:45 08/31/17 07:45 General appearance: Present: cooperative, A&O X 3, pleasant, no acute distress, answers questions appropriately - Head Head exam: Present: atraumatic, normocephalic - Eye Eye exam: Present: PERRL, conjuntiva pink, sclera anicteric Pupils: Present: PERRL - Neck Neck exam general surgery: Present: supple, trachea midline. Absent: lymphadenopathy - Respiratory Respiratory exam: Present: decreased breath sounds, CTAB. Absent: accessory muscle use, rales, rhonchi, wheezes - Cardiovascular Cardiovascular exam: Present: RRR, +S1, +S2. Absent: diastolic murmur, gallop, rubs, systolic murmur - GI/Abdominal GI/Abdominal exam: Present: normal bowel sounds, soft, no peritoneal signs. Absent: distended, tenderness - Extremities Exam Extremities exam: Present: warm, radial pulses palpable and symmetrical. Absent : calf tenderness, cyanotic, pedal edema - Neurological Exam Neurological exam: Present: CN II-XII intact, oriented X3, no focal deficits. Absent: pronater drift, facial droop, speech deficit - Skin Skin exam: Present: dry, intact Internal Medicine: Result - Labs CBC & Chem 7: 08/29/17 05:10 08/29/17 05:10 - ABG Interpretation ABG results: ABG ABG pH 7.43 pH Units (7.32-7.45) 08/24/17 08:46 ABG pCO2 71 mmHg (35-45) H* 08/24/17 08:46 ABG pO2 109 mmHg (85-104) H 08/24/17 08:46 ABG O2 Saturation 98 % (95-98) 08/24/17 08:46 - VTE Documentation of Mechanical Device: Graduated compression elastic hosiery Consult Discharge Plan - Plan Referrals: Rei Rubin MD [Partnered Physician] - 09/09/17 1:45 pm Justen Michaud MD [Partnered Physician] - 09/22/17 9:30 am (csardiology follow up at the [facility] [address]) Delonte Parker MD [Partnered Physician] - (Patient will need follow up at discharge.) Jefe Bansal MD [Primary Care Provider] -
[2017-09-01] MEDS: Levalbuterol Neb 1.25 MG/3 ML IH SCH ×4 (03:52→21:00)
[2017-09-01] MEDS: (Breo Ellipta 200-25 Mcg Inh) IH SCH (09:11)
[2017-09-01] MEDS: Multivit/Ca/Min/Fe/FA 1 TAB TABLET PO SCH (09:33)
[2017-09-01] MEDS: predniSONE 20 MG TABLET PO SCH (09:33)
[2017-09-01] MEDS: *HR* Digoxin 0.125 MG TABLET PO SCH (09:33)
[2017-09-01 11:46] LABS: Hematocrit 46.7 % (37.5-50.1); Mean Corpuscular HGB Conc 32.1 g/dL (31.6-35.5); Mean Corpuscular Hemoglobin 30.6 pg (28.0-33.3); Mean Corpuscular Volume 95.3 fL (83.0-100.0); Platelet Count 131 K/mcL (140-400)
[2017-09-01 12:31] LABS: BUN/Creatinine Ratio 36 (6-26); Blood Urea Nitrogen 27 mg/dL (8-23); Calcium 9.1 mg/dL (8.6-10.3); Carbon Dioxide 40 mEq/L (23-29); Chloride 95 mEq/L (98-107); Glucose 97 mg/dL (70-105); Osmolality,Calculated 291 (280-300); Potassium 3.9 mEq/L (3.5-5.1); Sodium 138 mEq/L (136-145); eGFR For African Americans > 60 (> 60); eGFR For Non-African Americans > 60 (> 60)
--- NOTE | 2017-09-01 12:44 | Internal Med Progress Note ---
Date of Encounter: 09/01/17 Time of Encounter: 12:42 - Assessment and plan (1) COPD exacerbation Current Visit: Yes Status: Chronic Assessment and plan: Maintaining oxygen Sats on 2 L per nasal cannula. Continue prednisone and inhaled breathing treatments as scheduled. History of thoracentesis with pleural effusions times 2 on right lung. (2) New onset atrial fibrillation Current Visit: Yes Status: Acute Assessment and plan: Rate and rhythm controlled. Continue digoxin. f/u with cardiology on september 22 as scheduled. (3) Pneumonia Current Visit: Yes Status: Resolved Assessment and plan: resolved. Qualifiers: Pneumonia type: due to unspecified organism Laterality: unspecified laterality Lung location: unspecified part of lung Qualified Code(s): J18.9 - Pneumonia, unspecified organism (4) Acute systolic heart failure Current Visit: Yes Status: Acute Assessment and plan: Stable. Monitor for decompensation. Continue digoxin. - Time Spent With Patient 25 - 35 minutes - Subjective Interval history: states feeling better each day. participating well with therapy. Denies chest pain, fever, chills, nausea vomiting or diarrhea. Bowels moving as normal. Maintaining appetite with currently drinking ensure supplements. Maintaining oxygen saturations greater than 92% on 2 L. discussing ECF placement. to follow up with cardiology september 22. - Constitutional Vitals: Temp Pulse Resp BP Pulse Ox 98.0 F 95 16 123/73 93 09/01/17 07:27 09/01/17 07:27 09/01/17 07:27 09/01/17 07:27 09/01/17 07:27 General appearance: Present: cooperative, A&O X 3, pleasant, no acute distress, answers questions appropriately - Head Head exam: Present: atraumatic, normocephalic - Eye Eye exam: Present: PERRL, conjuntiva pink, sclera anicteric Pupils: Present: PERRL - Neck Neck exam general surgery: Present: supple, trachea midline. Absent: lymphadenopathy - Respiratory Respiratory exam: Present: decreased breath sounds, CTAB. Absent: accessory muscle use, rales, rhonchi, wheezes - Cardiovascular Cardiovascular exam: Present: RRR, +S1, +S2. Absent: diastolic murmur, gallop, rubs, systolic murmur - GI/Abdominal GI/Abdominal exam: Present: normal bowel sounds, soft, no peritoneal signs. Absent: distended, tenderness - Extremities Exam Extremities exam: Present: pedal edema, warm, radial pulses palpable and symmetrical. Absent: calf tenderness, cyanotic Additional comments: nonpitting, wearing pan hose. - Neurological Exam Neurological exam: Present: CN II-XII intact, oriented X3, no focal deficits. Absent: pronater drift, facial droop, speech deficit - Skin Skin exam: Present: dry, intact Internal Medicine: Result - Labs CBC & Chem 7: 09/01/17 11:29 09/01/17 11:29 Labs: Short CBC 09/01/17 Range/Units 11:29 WBC 9.8 (4.3-11.1) K/mcL Hgb 15.0 (12.9-16.9) g/dL Hct 46.7 (37.5-50.1) % Plt Count 131 L (140-400) K/mcL BMP 09/01/17 11:29 Sodium 138 Potassium 3.9 Chloride 95 L Carbon Dioxide 40 H* BUN 27 H Creatinine 0.76 Glucose 97 Calcium 9.1 - ABG Interpretation ABG results: ABG ABG pH 7.43 pH Units (7.32-7.45) 08/24/17 08:46 ABG pCO2 71 mmHg (35-45) H* 08/24/17 08:46 ABG pO2 109 mmHg (85-104) H 08/24/17 08:46 ABG O2 Saturation 98 % (95-98) 08/24/17 08:46 - Impressions Impressions Chest X-Ray 08/30/17 16:20 IMPRESSION: Hyperinflation of the lung emerson. Stable chest with a large right pleural effusion. There is loculated pleural fluid in the upper lung. There is mild right basilar atelectasis. There is no change from the prior study. Follow up to resolution is suggested. D/ / 08/30/2017 08:38:05 Keren Chavez MD / Isabell Estes Interpreting Provider: Keren Chavez MD - VTE Documentation of Mechanical Device: Graduated compression elastic hosiery Consult Discharge Plan - Plan Referrals: Rei Rubin MD [Partnered Physician] - 09/09/17 1:45 pm Justen Michaud MD [Partnered Physician] - 09/22/17 9:30 am (csardiology follow up at the [facility] [address]) Delonte Parker MD [Partnered Physician] - (Patient will need follow up at discharge.) Jefe Bansal MD [Primary Care Provider] -
[2017-09-02] MEDS: Levalbuterol Neb 1.25 MG/3 ML IH SCH ×4 (04:00→21:35)
[2017-09-02] MEDS: predniSONE 20 MG TABLET PO SCH (08:10)
[2017-09-02] MEDS: *HR* Digoxin 0.125 MG TABLET PO SCH (08:10)
[2017-09-02] MEDS: Multivit/Ca/Min/Fe/FA 1 TAB TABLET PO SCH (08:10)
--- NOTE | 2017-09-02 14:33 | Internal Med Progress Note ---
Date of Encounter: 09/02/17 Time of Encounter: 14:31 - Assessment and plan (1) COPD exacerbation Current Visit: Yes Status: Chronic Assessment and plan: Patient currently appears relaxed but states that he does become short of breath with minimal exertion. Lungs are clear throughout but noted diminished breath sounds to lower half of lung emerson. Patient with recent history of right pleural effusion requiring thoracentesis 2 when hospitalized at [place]. Chest x-ray was repeated which shows stable right pleural effusion. We will continue to titrate oxygen to maintain saturations greater than 90 and less than 95%. Patient denies any productive cough. Afebrile. No current signs of infection. (2) Afib Current Visit: Yes Status: Chronic Assessment and plan: No acute issues. Heart rate remains irregular with controlled rate less than 100 Qualifiers: Atrial fibrillation type: chronic Qualified Code(s): I48.2 - Chronic atrial fibrillation (3) Heart failure Current Visit: No Status: Chronic Assessment and plan: Currently no acute issues. Patient with history of EF of 25-30% due to cardiomyopathy. Vital signs stable. Chest x-ray showed no pulmonary edema. Qualifiers: Heart failure type: unspecified Heart failure chronicity: unspecified Qualified Code(s): I50.9 - Heart failure, unspecified (4) Cardiomyopathy Current Visit: No Status: Chronic Assessment and plan: No acute issues. EF 25-30%. Chest x-ray shows no pulmonary edema, but does continue to show right pleural effusion. Vital signs are stable. We will continue with current medications Qualifiers: Cardiomyopathy type: unspecified Qualified Code(s): I42.9 - Cardiomyopathy , unspecified - Time Spent With Patient less than 15 minutes - Subjective Interval history: Patient currently appears relaxed and denies any discomforts. Patient states that his breathing seems somewhat improved but continues to have dyspnea with minimal exertion. Patient denies any productive cough. Patient reportedly has been weaned off O2 while awake with ox sat >92%. Currently patient is maintaining oxygen saturation greater than 92% while on room air. - Constitutional Vitals: Temp Pulse Resp BP Pulse Ox 97.6 F 69 16 120/67 98 09/02/17 07:56 09/02/17 07:56 09/02/17 07:56 09/02/17 07:56 09/02/17 07:56 General appearance: Present: cooperative, A&O X 3, pleasant, no acute distress, answers questions appropriately - Head Head exam: Present: atraumatic, normocephalic - Eye Eye exam: Present: PERRL, conjuntiva pink, sclera anicteric Pupils: Present: PERRL - Neck Neck exam general surgery: Present: supple, trachea midline. Absent: lymphadenopathy - Respiratory Respiratory exam: Present: CTAB. Absent: accessory muscle use, rales, rhonchi, wheezes Additional comments: Lungs are clear throughout upper emerson and diminished to lower posterior half. Patient continues to have slight dyspnea during exertion but appears relaxed with respiratory effort while at rest. - Cardiovascular Cardiovascular exam: Present: RRR, +S1, +S2. Absent: diastolic murmur, gallop, rubs, systolic murmur - GI/Abdominal GI/Abdominal exam: Present: normal bowel sounds, soft, no peritoneal signs. Absent: distended, tenderness - Extremities Exam Extremities exam: Present: warm, radial pulses palpable and symmetrical. Absent : calf tenderness, cyanotic, pedal edema Additional comments: Patient continues to have +1 pitting edema to lower legs and feet. - Neurological Exam Neurological exam: Present: CN II-XII intact, oriented X3, no focal deficits. Absent: pronater drift, facial droop, speech deficit - Skin Skin exam: Present: dry, intact Internal Medicine: Result - Labs CBC & Chem 7: 09/01/17 11:29 09/01/17 11:29 - ABG Interpretation ABG results: ABG ABG pH 7.43 pH Units (7.32-7.45) 08/24/17 08:46 ABG pCO2 71 mmHg (35-45) H* 08/24/17 08:46 ABG pO2 109 mmHg (85-104) H 08/24/17 08:46 ABG O2 Saturation 98 % (95-98) 08/24/17 08:46 - VTE Documentation of Mechanical Device: Graduated compression elastic hosiery Consult Discharge Plan - Plan Referrals: Rei Rubin MD [Partnered Physician] - 09/09/17 1:45 pm Justen Michaud MD [Partnered Physician] - 09/22/17 9:30 am (csardiology follow up at the [facility] [address]) Delonte Parker MD [Partnered Physician] - (Patient will need follow up at discharge.) Jefe Bansal MD [Primary Care Provider] -
[2017-09-02] MEDS: (Breo Ellipta 200-25 Mcg Inh) IH SCH (18:11)
--- NOTE | 2017-09-03 12:20 | Discharge Summary ---
Orders not resulted at time of discharge: Pending orders 08/25/17 15:05 Fungal Culture [MYC] Routine Fungal Smear [MYC] Routine Date of Encounter: 09/03/17 Time of Encounter: 12:16 - Discharge Diagnosis (1) COPD exacerbation Priority: Primary Status: Chronic Comments: Patient limited to rehabilitation for deconditioning related to his advanced COPD. Patient was admitted originally for exacerbation of COPD. Patient has progressed well with physical therapy during his stay at facility. Patient is to continue to be weaned from his oxygen as tolerated to maintain a saturation greater than 92%. Patient with history of cardiomyopathy and ejection fraction of 25%, so to relieve oxygen demand, we will maintain his saturation greater than 90% but less than 95%. Patient was attempted with BiPAP but refused as he states he was unable to tolerate. Patient to continue with current medications and bronchodilators. Patient is to continue with physical therapy to build his endurance. Recommended patient follow-up with pulmonology and 1 week and PCP in 2 weeks. (2) Afib Priority: Secondary Status: Chronic Comments: No acute issues during stay. New-onset atrial fibrillation. Patient's heart rate remains irregular with ventricular rate less than 100. Patient started on low-dose Xarelto. Conservative treatment with anticoagulation due to patient experienced a GI bleed during hospitalization. Follow-up with cardiology scheduled for September 22. Qualifiers: Atrial fibrillation type: chronic Qualified Code(s): I48.2 - Chronic atrial fibrillation (3) Heart failure Priority: Secondary Status: Chronic Comments: o acute issues during stay of facility. Patient continues to have issues with endurance and dyspnea after exertion. We will continue on current medications and follow-up with cardiology in 3 weeks Qualifiers: Heart failure type: unspecified Heart failure chronicity: unspecified Qualified Code(s): I50.9 - Heart failure, unspecified (4) Cardiomyopathy Priority: Secondary Status: Chronic Comments: No acute issues during stay of facility. Patient to follow-up with cardiology in 3 weeks. Continue with current medications. Patient remains on Xarelto. Qualifiers: Cardiomyopathy type: unspecified Qualified Code(s): I42.9 - Cardiomyopathy , unspecified Hospital course: Mr. Louis is a 67 year old male admitted to rehab unit from [facility] after being admitted for COPD exacerbation, pneumonia, new onset a fib and CHF. Patient has been a 40+ years, 2 packs a day. States he quit 2 weeks ago. Recently had a thoracentesis for right pleural effusion x2. Patient had serial chest x-rays over the last 2 weeks which shows slight improvement of right pleural effusion. Patient has dissipated and physical therapy and has progressed well. Noted continued dyspnea with exertion. Patient continues to require oxygen during physical therapy and at night. Patient has been successfully weaned off oxygen during the day while at rest maintaining a saturation greater than 92%. Patient's goal for oxygen saturations during titration have been rater to 92% to avoid taxing of his cardiomyopathy, and less than 95% due to his progressive COPD. Patient was new onset atrial fibrillation during this hospitalization and currently has been started on low- dose Xarelto. Conservative treatment with anticoagulation due to a GI bleed noted during his hospitalization. Patient showed no further signs of active bleeding and has maintained a stable hemoglobin during his stay of facility. Patient is to continue with physical therapy at [facility]. Patient has follow-up visit on September 22 with cardiology for evaluation of his atrial fibrillation and cardiomyopathy. Patient is to continue follow-up with pulmonology in one week. Patient to follow-up with PCP for further management.. Discharge discussed with: patient Time spent discussing smoking cessation with patient: 3 to 10 minutes - Time Spent with Patient Total time spent providing and/or coordinating discharge services: Less than 30 minutes - Discharge Medications Home Medications: Albuterol Sulfate [Proair Respiclick] 90 mcg IH QID PRN 08/14/17 [History] Fluticasone/Vilanterol [Breo Ellipta 200-25 Mcg INH] 1 puff IH DAILY 08/14/17 [ History] Albuterol Neb [Proventil Neb] 2.5 mg IH Q8H PRN 08/15/17 [History] Multivits,Ca,Min/Iron/FA/Lycop [Men Under 50 Multivitamin Tab] 1 tab PO DAILY [History] Amoxicillin/Clavulanate [Augmentin] 875 mg PO BIDWM 7 Days #14 tablet 08/21/17 [ Rx] Carvedilol [Coreg] 12.5 mg PO BIDWM #30 tablet 08/21/17 [Rx] Digoxin [Lanoxin] 0.125 mg PO DAILY #30 tablet 08/21/17 [Rx] predniSONE [PredniSONE] 20 mg PO DAILY 5 Days #5 tablet 08/21/17 [Rx] Allergies/Adverse Reactions: 3 Allergy/AdvReac Type Severity Reaction Status Date / Time No Known Allergies Allergy Verified 08/25/17 09:06 Date of admission: 08/23/17 15:18 Primary care physician: Jefe Bansal MD Consults: 08/23/17 16:54 Consult to Occupational Therapy [CONS] Routine Comment: eval Reason for Consult: eval Does patient have active BEDREST order?: No Is patient medically & hemodynamically stable?: Yes Consult to Physical Therapy [CONS] Routine Comment: eval Reason for Consult: eval Does patient have active BEDREST order?: No Is patient medically & hemodynamically stable?: Yes Consult to Recreational Therapy [CONS] Routine Comment: Consult to Police Stenographer [CONS] Routine Reason for SW Consult: d/c planning Discharging clinician: Fredrick Castano - Constitutional Vitals: Temp Pulse Resp BP Pulse Ox 99.0 F 95 16 105/62 97 09/02/17 19:49 09/02/17 19:49 09/02/17 19:49 09/02/17 19:49 09/02/17 19:49 General appearance: Present: cooperative, A&O X 3, pleasant, no acute distress, answers questions appropriately - Head Head exam: Present: atraumatic, normocephalic - Eye Eye exam: Present: PERRL, conjuntiva pink, sclera anicteric Pupils: Present: PERRL - Neck Neck exam general surgery: Present: supple, trachea midline. Absent: lymphadenopathy - Respiratory Respiratory exam: Present: CTAB. Absent: accessory muscle use, rales, rhonchi, wheezes Additional comments: Lungs are clear to upper emerson but is diminished to lower half of lung emerson. No wheezes. Respiratory effort appears relaxed while at rest. Saturation greater than 90% - Cardiovascular Cardiovascular exam: Present: irregular rhythm, RRR, +S1, +S2. Absent: diastolic murmur, gallop, rubs, systolic murmur Additional comments: Heart rate remains irregular with ventricular rate less than 100. - GI/Abdominal GI/Abdominal exam: Present: normal bowel sounds, soft, no peritoneal signs. Absent: distended, tenderness - Extremities Exam Extremities exam: Present: warm, radial pulses palpable and symmetrical. Absent : calf tenderness, cyanotic, pedal edema Additional comments: +1 edema to lower legs and feet. - Neurological Exam Neurological exam: Present: CN II-XII intact, oriented X3, no focal deficits. Absent: pronater drift, facial droop, speech deficit - Skin Skin exam: Present: dry, intact - Patient Status Disposition: Transfer SNF Condition: Good Functional capacity at discharge: uses cane/walker Overall status at discharge: patient is progressing back to baseline - Discharge Instructions Follow Up With: Ilan Castorena PAC [Physician Network Manager] - Rei Rubin MD [Partnered Physician] - 09/09/17 1:45 pm Justen Michaud MD [Partnered Physician] - 09/22/17 8:30 am (csardiology follow up at the [facility] [address]) Delonte Parker MD [Partnered Physician] - (Patient will need follow up at discharge.) Anand Shah MD [Partnered Physician] - 09/29/17 9:15 am (Please follow up in [place] [address] in the [facility] Jefe Bansla MD [Primary Care Provider] - - Diet and Activity Activity: ambulate only with your walker, as per physical therapy, increase activity as tolerated, wear oxygen at night Diet: low fat, low cholesterol, low salt diet - VTE Documentation of Mechanical Device: Graduated compression elastic hosiery
[2017-09-03 12:30] VITALS: BP 123/72
--- NOTE | 2017-09-03 12:41 | Physician Discharge Referral ---
ExtendedCare Referral Info Provider in Charge after Transfer: PCP Institutional Level of Care: Skilled - Diagnosis (1) COPD exacerbation Priority: Primary Status: Chronic (2) Afib Priority: Secondary Status: Chronic (3) Heart failure Priority: Secondary Status: Chronic (4) Cardiomyopathy Priority: Secondary Status: Chronic Prognosis: Good Aware of Diagnosis: Patient Aware of Prognosis: Patient - Transfer Medications Home Medications: Albuterol Sulfate [Proair Respiclick] 90 mcg IH QID PRN 08/14/17 [History] Fluticasone/Vilanterol [Breo Ellipta 200-25 Mcg INH] 1 puff IH DAILY 08/14/17 [ History] Albuterol Neb [Proventil Neb] 2.5 mg IH Q8H PRN 08/15/17 [History] Multivits,Ca,Min/Iron/FA/Lycop [Men Under 50 Multivitamin Tab] 1 tab PO DAILY [History] Amoxicillin/Clavulanate [Augmentin] 875 mg PO BIDWM 7 Days #14 tablet 08/21/17 [ Rx] Carvedilol [Coreg] 12.5 mg PO BIDWM #30 tablet 08/21/17 [Rx] Digoxin [Lanoxin] 0.125 mg PO DAILY #30 tablet 08/21/17 [Rx] predniSONE [PredniSONE] 20 mg PO DAILY 5 Days #5 tablet 08/21/17 [Rx] Albuterol Neb [Proventil Neb] 2.5 mg IH Q8H PRN inhsol 09/03/17 [Rx] Calcium Carbonate [Tums] 1,500 mg PO Q4HR PRN tab.chew 09/03/17 [Rx] Levalbuterol Neb [Xopenex Neb] 1.25 mg IH [id number] vial.neb 09/03/17 [Rx] Nitroglycerin 0.4 mg SL Q5MIN PRN tab.subl 09/03/17 [Rx] Rivaroxaban [Xarelto] 10 mg PO 0600 tablet 09/03/17 [Rx] Allergies/Adverse Reactions: 3 Allergy/AdvReac Type Severity Reaction Status Date / Time No Known Allergies Allergy Verified 08/25/17 09:06 - Respiratory Orders Oxygen / L per min Smoking Cessation: Smoking cessation has been advised. For more information, call the [employer] Tobacco Quit Line at 3-493-HJFC-NOW. - Lab Orders Lab Orders: 2 Step Mantoux Test per State regulation, CBC, U/A, Arjun 17, CXR yearly - Ancillary Orders May use pressure relief devices daily prn, May go on MONICA w/family/respon green party w /meds at nurse discretion PRN, May consult with Dentist, Access Coordinator, Counter Intelligence Technician PRN - Mobility Orders Ambulate - Rehabiliation Orders Rehab Potential: Good Rehab Orders: ROM Exercises, Evaluation for Physical Therapy, Evaluation for Occupational Therapy - Treatments Skin tear care topically daily PRN per policy, May check for fecal impaction rectally daily PRN, Fleet enema rectally every other day PRN cleansing purposes - Diet Orders No Added Salt (MARY), Cardiac CERTIFICATION: I certify that the transfer of the above named patient to an Extended Care Facility is necessary for the continuing treatment of the diagnosis listed. The above information is true and accurate reflection of patient's current condition. Confidential - Redisclosure prohibited without a patient's written consent.
[2017-09-04] MEDS ORDERED: *HR* Rivaroxaban 10 MG TABLET PO SCH (06:00)
== END 2017-09-03 14:03 | DRG 190 ==
LOC: INPGRE 15:18